=== PATIENT | female | born 1955 ===

== ENCOUNTER → 2022-08-18 09:29 | Outpatient (BNVA) | payer MEDICARE, SELFPAY | PROVIDERS: Family Provider Registered Nurse; PCP Registered Nurse; Visit Provider Podiatrist Foot & Ankle Surgery | DX: L84 Corns and callosities (principal); M20.11 Hallux valgus (acquired), right foot; M20.12 Hallux valgus (acquired), left foot | CPT/HCPCS: 11056; 99204 ==

== ENCOUNTER 2023-01-19 08:26 | Outpatient (RCR) | payer MEDICARE, SELFPAY | END 2023-02-09 23:59 | disposition home or self-care (01) | LOC: SPT 08:26 | PROVIDERS: Visit Provider Registered Nurse | DX: M25.512 Pain in left shoulder (principal); G89.29 Other chronic pain | CPT/HCPCS: 97110; 97161 ==

== ENCOUNTER 2023-02-10 06:00 | Outpatient (RCR) | payer MEDICARE, SELFPAY | END 2023-02-16 23:59 | disposition home or self-care (01) | LOC: SPT 06:00 | PROVIDERS: Visit Provider Registered Nurse | DX: M25.512 Pain in left shoulder (principal); G89.29 Other chronic pain | CPT/HCPCS: 97110 ==